=== PATIENT | female | born 1950 | race American Indian/Alaskan Native ===

== ENCOUNTER 2018-07-10 15:20 | Emergency (ER) | payer MEDICARE, OTHER ==
[2018-07-10] MEDS ORDERED: Mupirocin Oint 22 GM Tube TOP ONE (15:21)
[2018-07-10 15:36] VITALS: BP 189/84
[2018-07-10] MEDS ORDERED: Mupirocin Oint 22 GM Tube ONE (16:57)
--- NOTE | 2018-07-11 08:35 | EDM.PDOC ---
Scribed by Kathleen Pittman 07/10/18 [id number] for Antonette Prasad NP ED HPI GENERAL MEDICAL PROBLEM - General Chief Complaint: ENT Problem Stated Complaint: BOIL INSIDE NOSE- PAINFUL Time Seen by Provider: 07/10/18 16:43 Source of Information: Reports: Patient, RN, RN Notes Reviewed History Limitations: Reports: No Limitations - History of Present Illness INITIAL COMMENTS - FREE TEXT/NARRATIVE: Patient presents to ER with complaint of boil on the left nare. This began that she noticed yesterday. She states she has had one in the nose before. Denies MRSA. She has had no fever, chills, nausea, vomiting, diarrhea or visual disturbance. Onset Date: 07/09/18 Duration: Constant Location: Reports: Other (nose) Quality: Reports: Ache Severity: Moderate Improves with: Reports: None Worsens with: Reports: None Associated Symptoms: Reports: No Other Symptoms - Related Data Allergies Allergy/AdvReac Type Severity Reaction Status Date / Time codeine Allergy Vomiting Verified 07/10/18 15:28 meperidine HCl [From Demerol] Allergy Nausea Verified 07/10/18 15:28 morphine Allergy Vomiting Verified 07/10/18 15:28 tramadol Allergy Vomiting Verified 07/10/18 15:28 Home Meds: Home Meds Simvastatin [Zocor] 10 mg PO BEDTIME 05/16/13 [History] Fenofibric Acid (Choline) [Fenofibric Acid] 135 mg PO DAILY 07/10/18 [History] Lisinopril 20 mg PO DAILY 07/10/18 [History] Omeprazole 20 mg PO DAILY 07/10/18 [History] Venlafaxine HCl [Venlafaxine ER] 75 mg PO DAILY 07/10/18 [History] Past Medical History Cardiovascular History: Reports: Heart Murmur, Hypertension Other Cardiovascular History: rheumatic fever and heart murmur Gastrointestinal History: Reports: GERD - Infectious Disease History Infectious Disease History: Reports: Rheumatic Fever Social & Family History - Tobacco Use Smoking Status *Q: Current Every Day Smoker Years of Tobacco use: 40 Packs/Tins Daily: 1 - Living Situation & Occupation Living situation: Reports: , with Spouse Occupation: Retired ED ROS ENT - Review of Systems Review Of Systems: ROS reveals no pertinent complaints other than HPI. ED EXAM, ENT - Physical Exam Exam: See Below Exam Limited By: No Limitations General Appearance: Alert, WD/WN, No Apparent Distress Eye Exam: Bilateral Eye: EOMI, Normal Inspection, PERRL Ears: Normal External Exam, Normal Canal, Hearing Grossly Normal, Normal TMs Nose: Other (left nare is erythematous and there is swelling) Mouth/Throat: Normal Inspection, Normal Gums, Normal Lips, Normal Oropharynx, Normal Teeth Head: Atraumatic, Normocephalic Neck: Normal Inspection Respiratory/Chest: No Respiratory Distress, Lungs Clear, Normal Breath Sounds, No Accessory Muscle Use, Chest Non-Tender Cardiovascular: Normal Peripheral Pulses, Regular Rate, Rhythm, No Edema, No Gallop, No JVD, No Murmur, No Rub GI/Abdominal: Normal Bowel Sounds, Soft, Non-Tender, No Organomegaly, No Distention, No Abnormal Bruit, No Mass (Female) Exam: Deferred Rectal (Female) Exam: Deferred Back: Normal Inspection, Full Range of Motion Extremities: Normal Inspection, Normal Range of Motion, Non-Tender, No Pedal Edema, Normal Capillary Refill Neurological: Alert, Oriented, CN II-XII Intact, Normal Cognition, Normal Gait, Normal Reflexes, No Motor/Sensory Deficits Psychiatric: Normal Affect, Normal Mood Skin: Other (See HEENT exam) Lymphatic: No Adenopathy Course - Vital Signs Last Recorded V/S: Last Vital Signs Temp 98.4 F 07/10/18 15:24 Pulse 75 07/10/18 15:24 Resp 16 07/10/18 15:24 BP 189/84 H 07/10/18 15:24 Pulse Ox 96 07/10/18 15:24 Departure - Departure Time of Disposition: 16:55 Disposition: Home, Self-Care 01 Condition: Fair Clinical Impression: Abscess - Discharge Information *PRESCRIPTION DRUG MONITORING PROGRAM REVIEWED*: No *COPY OF PRESCRIPTION DRUG MONITORING REPORT IN PATIENT WILLIAM: No Instructions: Skin Abscess, [id number] Forms: ED Department Discharge Additional Instructions: May hotpack the area as tolerated Apply Bactroban to the area 3-4 times daily with a clean qtip until healed. If any worsening symptoms, return to the ER or follow up with your primary care facility I have read and agree with the documentation that has been completed regarding this visit. By signing this record, I attest that the documentation was completed in my physical presence and is an accurate record of the encounter.
== END 2018-07-10 17:05 | disposition home or self-care (01) ==
LOC: DL.ED 15:20
DX: J34.0 Abscess, furuncle and carbuncle of nose (principal); I10 Essential (primary) hypertension; K21.9 Gastro-esophageal reflux disease without esophagitis; F17.210 Nicotine dependence, cigarettes, uncomplicated; Z88.5 Allergy status to narcotic agent; Z88.8 Allergy status to other drugs, medicaments and biological substances; Z79.899 Other long term (current) drug therapy
CPT/HCPCS: 99283; A9270

== ENCOUNTER 2018-11-27 15:09 | Emergency (ER) | payer BC, MEDICARE, OTHER ==
--- NOTE | 2018-11-27 15:55 | EDM.PDOC ---
ED HPI GENERAL MEDICAL PROBLEM - General Chief Complaint: Chest Pain Stated Complaint: SHORT OF BREATH, CHEST HURTING Time Seen by Provider: 11/27/18 15:55 Source of Information: Reports: Patient, RN, RN Notes Reviewed History Limitations: Reports: No Limitations - History of Present Illness INITIAL COMMENTS - FREE TEXT/NARRATIVE: Pt to ER with c/o pain in the left chest and back with inspiration. States this pain began this morning. Patient denies SOB. States the left side pain worsens with inspiration. No radiation of pain to the left arm, neck. Patient denies fever or chills, N/V/D, recent illness. Patient states she is a smoker, has not smoked today. Onset: Today, Sudden Duration: Constant, Getting Worse Location: Reports: Chest Left Chest Pain Score (Numeric/FACES): 4 - Related Data Allergies Allergy/AdvReac Type Severity Reaction Status Date / Time codeine Allergy Vomiting Verified 11/27/18 16:03 meperidine HCl [From Demerol] Allergy Nausea Verified 11/27/18 16:03 morphine Allergy Vomiting Verified 11/27/18 16:03 tramadol Allergy Vomiting Verified 11/27/18 16:03 Home Meds: Home Meds Simvastatin [Zocor] 10 mg PO BEDTIME 05/16/13 [History] Fenofibric Acid (Choline) [Fenofibric Acid] 135 mg PO DAILY 07/10/18 [History] Lisinopril 20 mg PO DAILY 07/10/18 [History] Omeprazole 20 mg PO DAILY 07/10/18 [History] Venlafaxine HCl [Venlafaxine ER] 75 mg PO DAILY 07/10/18 [History] Past Medical History Cardiovascular History: Reports: Heart Murmur, Hypertension Other Cardiovascular History: rheumatic fever and heart murmur Gastrointestinal History: Reports: GERD - Infectious Disease History Infectious Disease History: Reports: Rheumatic Fever Social & Family History - Living Situation & Occupation Living situation: Reports: , with Spouse Occupation: Retired ED ROS GENERAL - Review of Systems Review Of Systems: ROS reveals no pertinent complaints other than HPI. ED EXAM, GENERAL - Physical Exam Exam: See Below Exam Limited By: No Limitations General Appearance: Alert, WD/WN, Mild Distress Eye Exam: Bilateral Eye: EOMI, Normal Inspection Ears: Normal External Exam, Hearing Grossly Normal Nose: Normal Inspection Throat/Mouth: Normal Inspection Head: Atraumatic, Normocephalic Neck: Normal Inspection, Supple, Non-Tender, Full Range of Motion Respiratory/Chest: No Respiratory Distress, Lungs Clear, Normal Breath Sounds, No Accessory Muscle Use, Other (tender on the left on inspiration) Cardiovascular: Normal Peripheral Pulses, Regular Rate, Rhythm, No Edema, No Gallop, No JVD, No Murmur, No Rub Peripheral Pulses: 2+: Radial (L), Radial (R) GI/Abdominal: Normal Bowel Sounds, Soft, Non-Tender, No Organomegaly, No Distention, No Abnormal Bruit, No Mass (Female) Exam: Deferred Rectal (Female) Exam: Deferred Back Exam: Normal Inspection, Full Range of Motion. No: CVA Tenderness (L), CVA Tenderness (R), Decreased Range of Motion Extremities: Normal Inspection, Normal Range of Motion, Non-Tender, Normal Capillary Refill, No Pedal Edema Neurological: Alert, Oriented, CN II-XII Intact, Normal Cognition, Normal Gait, Normal Reflexes, No Motor/Sensory Deficits Psychiatric: Normal Affect, Normal Mood Skin Exam: Warm, Dry, Intact, Normal Color, No Rash Lymphatic: No Adenopathy Course - Vital Signs Last Recorded V/S: Last Vital Signs Temp 97.3 F 11/27/18 15:15 Pulse 73 11/27/18 15:15 Resp 16 11/27/18 15:15 BP 126/72 11/27/18 15:15 Pulse Ox 97 11/27/18 15:15 - Orders/Labs/Meds Orders: Active Orders 24 hr Category Date Time Status EKG 12 Lead [EKG Documentation Completion] [RC] URGENT Care 11/27/18 15:33 Active Labs: Laboratory Tests 11/27/18 11/27/18 Range/Units 15:42 15:42 WBC 5.6 (5.0-10.0) 10^3/uL RBC 4.63 (4.2-5.4) 10^6/uL Hgb 13.1 (12.0-16.0) g/dL Hct 41.3 (37.0-47.0) % MCV 89.2 D (80-100) fL MCH 28.3 (27.0-34.0) pg MCHC 31.7 L (33.0-35.0) g/dL Plt Count 301 (150-450) 10^3/uL Neut % (Auto) 51.3 (42.2-75.2) % Lymph % (Auto) 39.2 (20.5-50.1) % Harper % (Auto) 6.8 (2-8) % Eos % (Auto) 2.2 (1.0-3.0) % Baso % (Auto) 0.5 (0.0-1.0) % Sodium 142 (135-145) mmol/L Potassium 3.7 (3.6-5.0) mmol/L Chloride 111 (101-111) mmol/L Carbon Dioxide 22.0 (21.0-31.0) mmol/L Anion Gap 12.7 BUN 18 (7-18) mg/dL Creatinine 0.9 (0.6-1.3) mg/dL Est Cr Clr Drug Dosing 49.49 mL/min Estimated GFR (MDRD) > 60 BUN/Creatinine Ratio 20.00 Glucose 161 H (74-105) mg/dL Calcium 8.9 (8.4-10.2) mg/dl Total Bilirubin 0.3 (0.2-1.0) mg/dL AST 24 (10-42) IU/L ALT 23 (10-60) IU/L Alkaline Phosphatase 47 (42-121) IU/L Troponin I < 0.02 (0.00-0.02) ng/ml Total Protein 7.1 (6.7-8.2) g/dl Albumin 3.9 (3.2-5.5) g/dl Globulin 3.2 Albumin/Globulin Ratio 1.22 - Radiology Interpretation Free Text/Narrative:: Chest xray: FINDINGS: Lungs: Aeration and architecture is normal Pleural space: The pleural surfaces are normal. There are no signs of effusion or pneumothorax. Heart/Mediastinum: The heart and mediastinum appear normal. Left tracheal deviation is unchanged. Bones/joints: Normal IMPRESSION: Normal Thank you for allowing us to participate in the care of your patient. Dictated and Authenticated by: Андрей Herman MD 11/27/2018 4:19 PM Central Time ([place] & [place]) See rad report Departure - Departure Time of Disposition: 17:23 Disposition: Home, Self-Care 01 Condition: Fair Clinical Impression: Pleurisy Instructions: Nonspecific Chest Pain, [id number], Pleurisy, [id number] Referrals: PCP,None [Primary Care Provider] - Forms: ED Department Discharge Additional Instructions: May use heat as tolerated to the area May use Tylenol and/or Ibuprofen as directed for pain Refrain from smoking Follow up with your primary care facility if no improvement - My Orders Last 24 Hours: My Active Orders 11/27/18 15:33 EKG 12 Lead [EKG Documentation Completion] [RC] URGENT - Assessment/Plan Last 24 Hours: My Active Orders 11/27/18 15:33 EKG 12 Lead [EKG Documentation Completion] [RC] URGENT
[2018-11-27 16:03] VITALS: BP 126/72; PULSE 73
[2018-11-27 16:10] LABS: ANION GAP 12.7; CHLORIDE,CL 111 mmol/L (101-111); SODIUM,NA 142 mmol/L (135-145)
== END 2018-11-27 17:35 | disposition home or self-care (01) ==
LOC: DL.ED 15:09
DX: R09.1 Pleurisy (principal); I10 Essential (primary) hypertension; K21.9 Gastro-esophageal reflux disease without esophagitis; Z88.5 Allergy status to narcotic agent; Z88.8 Allergy status to other drugs, medicaments and biological substances; Z79.899 Other long term (current) drug therapy
CPT/HCPCS: 36415; 71045; 80053; 84484; 85025; 93005; 99285-25

== ENCOUNTER 2019-08-27 14:31 | Emergency (ER) | payer BC, MEDICARE, OTHER ==
[2019-08-27] MEDS ORDERED: Sulfamethoxazole/Trimethoprim 800-160 MG Tab PO ONE (14:32)
[2019-08-27 14:46] VITALS: PULSE 83
[2019-08-27 14:55] VITALS: BP 136/78
[2019-08-27 16:03] LABS: ANION GAP 16.5 mEq/L (7-13); CHLORIDE,CL 107 mmol/L (98-107); SODIUM,NA 143 mmol/L (136-145)
--- NOTE | 2019-08-27 16:38 | EDM.PDOC ---
Scribed by Kathleen Pittman 08/27/19 [id number] for Ora Drew NP ED HPI GENERAL MEDICAL PROBLEM - General Chief Complaint: Syncope Stated Complaint: AMB Time Seen by Provider: 08/27/19 14:33 Source of Information: Reports: Patient, EMS, EMS Notes Reviewed, RN, RN Notes Reviewed - History of Present Illness INITIAL COMMENTS - FREE TEXT/NARRATIVE: A 68-year-old female who presents to the hospital by [facility] for a syncopal episode. Patient reports she had vegetable soup and a wine cooler. She reports she felt sick almost immediately when she was done drinking the wine cooler and went to the bathroom to defecate. She reports filling tired and weak and sitting on the toilet. She had diarrhea and called her son to help to get her to the living room as she was very weak. Her helped her to the living room and reports she passed out on the couch. Her denies any seizure activity and stated patient went into a deep sleep and would not respond to calls. Patient reports she cannot remember any of this after being brought out of the bathroom to the couch. She did not fall nor hit her head. She denies prior history of this. No illicit drug use. She smokes cigarettes. She has never had a syncopal episode before. She did admit to having nausea, but no vomiting. She reports also feeling pressure in her suprapubic area. She denies any fevers or chills. No blood in stools or constipation at this time. Patient reports she feels better and the nausea has subsided after being in the bathroom in the ER for 20 minutes. She reports diarrhea. Onset: Today Severity: Moderate Headache Pain Score (Numeric/FACES): 6 - Related Data Allergies Allergy/AdvReac Type Severity Reaction Status Date / Time codeine Allergy Vomiting Verified 11/27/18 16:03 meperidine HCl [From Demerol] Allergy Nausea Verified 11/27/18 16:03 morphine Allergy Vomiting Verified 11/27/18 16:03 tramadol Allergy Vomiting Verified 11/27/18 16:03 Home Meds: Home Meds Simvastatin [Zocor] 10 mg PO BEDTIME 05/16/13 [History] Fenofibric Acid (Choline) [Fenofibric Acid] 135 mg PO DAILY 07/10/18 [History] Lisinopril 20 mg PO DAILY 07/10/18 [History] Omeprazole 20 mg PO DAILY 07/10/18 [History] Venlafaxine HCl [Venlafaxine ER] 75 mg PO DAILY 07/10/18 [History] Meclizine [Antivert] 25 mg PO DAILY 08/27/19 [History] Past Medical History Cardiovascular History: Reports: Heart Murmur, Hypertension Other Cardiovascular History: rheumatic fever and heart murmur Gastrointestinal History: Reports: GERD - Infectious Disease History Infectious Disease History: Reports: Rheumatic Fever Social & Family History - Living Situation & Occupation Living situation: Reports: , with Spouse Occupation: Retired ED ROS GENERAL - Review of Systems Review Of Systems: Comprehensive ROS is negative, except as noted in HPI. ED EXAM, GENERAL - Physical Exam Exam: See Below Exam Limited By: No Limitations General Appearance: Alert, Mild Distress Eye Exam: Bilateral Eye: PERRL Nose: Normal Inspection, Normal Mucosa, No Blood Throat/Mouth: Normal Inspection, Normal Lips, Normal Teeth, Normal Gums, Normal Oropharynx, Normal Voice, No Airway Compromise Head: Atraumatic, Normocephalic Neck: Normal Inspection, Supple, Non-Tender, Full Range of Motion Respiratory/Chest: No Respiratory Distress, Lungs Clear, Normal Breath Sounds, No Accessory Muscle Use, Chest Non-Tender Cardiovascular: Normal Peripheral Pulses, Regular Rate, Rhythm, No Edema, No Gallop, No JVD, No Murmur, No Rub GI/Abdominal: Normal Bowel Sounds, Soft, Non-Tender, No Organomegaly, No Distention, No Abnormal Bruit, No Mass (Female) Exam: Deferred Rectal (Female) Exam: Deferred Back Exam: Normal Inspection, Full Range of Motion, NT Extremities: Normal Inspection, Normal Range of Motion, Non-Tender, Normal Capillary Refill, No Pedal Edema Neurological: Alert, Oriented, CN II-XII Intact, Normal Cognition, Normal Gait, Normal Reflexes, No Motor/Sensory Deficits Psychiatric: Normal Affect, Normal Mood Skin Exam: Warm, Dry, Intact, Normal Color, No Rash Lymphatic: No Adenopathy Course - Vital Signs Last Recorded V/S: Last Vital Signs Temp 98.4 F 08/27/19 14:36 Pulse 83 08/27/19 14:36 Resp 16 08/27/19 14:36 BP 136/78 08/27/19 14:54 Pulse Ox 100 06/13/20 14:36 - Orders/Labs/Meds Orders: Active Orders 24 hr Category Date Time Status EKG Documentation Completion [RC] AM Care 08/27/19 14:34 Active CULTURE URINE [RM] Stat Lab 08/27/19 15:50 Ordered Labs: Laboratory Tests 08/27/19 08/27/19 08/27/19 Range/Units 14:34 15:20 15:20 WBC 7.1 (5.0-10.0) 10^3/uL RBC 4.73 (4.2-5.4) 10^6/uL Hgb 13.4 (12.0-16.0) g/dL Hct 41.5 (37.0-47.0) % MCV 87.7 (80-100) fL MCH 28.3 (27.0-34.0) pg MCHC 32.3 L (33.0-35.0) g/dL Plt Count 267 (150-450) 10^3/uL Neut % (Auto) 64.8 (42.2-75.2) % Lymph % (Auto) 25.4 (20.5-50.1) % [place] % (Auto) 5.8 (2-8) % Eos % (Auto) 3.4 H (1.0-3.0) % Baso % (Auto) 0.6 (0.0-1.0) % Sodium 143 (136-145) mmol/L Potassium 3.5 (3.5-5.1) mmol/L Chloride 107 (98-107) mmol/L Carbon Dioxide 23 (21-32) mmol/L Anion Gap 16.5 H (7-13) mEq/L BUN 14 (7-18) mg/dL Creatinine 0.89 (0.55-1.02) mg/dL Est Cr Clr Drug Dosing 43.45 mL/min Estimated GFR (MDRD) > 60 BUN/Creatinine Ratio 15.7 (No establ ref range) Glucose 144 H (74-99) mg/dL Calcium 9.2 (8.5-10.1) mg/dL Phosphorus (2.6-4.7) mg/dL Magnesium (1.8-2.4) mg/dL Total Bilirubin 0.3 (0.2-1.0) mg/dL AST 32 (15-37) U/L ALT 42 (14-59) U/L Alkaline Phosphatase 109 (46-116) U/L Total Protein 7.2 (6.4-8.2) g/dL Albumin 3.7 (3.4-5.0) g/dL Globulin 3.5 Albumin/Globulin Ratio 1.1 Urine Color Dark yellow (YELLOW) Urine Appearance Clear (CLEAR) Urine pH 6.0 (5.0-9.0) Ur Specific [place] 1.025 (1.005-1.030) Urine Protein 100 H (NEGATIVE) Urine Glucose (UA) Negative (NEGATIVE) Urine Ketones Trace H (NEGATIVE) Urine Occult Blood Negative (NEGATIVE) Urine Nitrite Positive H (NEGATIVE) Urine Bilirubin Small H (NEGATIVE) Urine Urobilinogen >=8.0 H (0.2-1.0) mg/dL Ur Leukocyte Esterase Negative (NEGATIVE) Urine RBC 0-5 /HPF Urine WBC 0-5 (0-5/HPF) /HPF Ur Epithelial Cells Few (NOT SEEN) /HPF Urine Bacteria Moderate H (0-FEW/HPF) /HPF Granular Casts (Auto) Rare //20 Range/Units 15:20 WBC (5.0-10.0) 10^3/uL RBC (4.2-5.4) 10^6/uL Hgb (12.0-16.0) g/dL Hct (37.0-47.0) % MCV (80-100) fL MCH (27.0-34.0) pg MCHC (33.0-35.0) g/dL Plt Count (150-450) 10^3/uL Neut % (Auto) (42.2-75.2) % Lymph % (Auto) (20.5-50.1) % [place]undy % (Auto) (2-8) % Eos % (Auto) (1.0-3.0) % Baso % (Auto) (0.0-1.0) % Sodium (136-145) mmol/L Potassium (3.5-5.1) mmol/L Chloride (98-107) mmol/L Carbon Dioxide (21-32) mmol/L Anion Gap (7-13) mEq/L BUN (7-18) mg/dL Creatinine (0.55-1.02) mg/dL Est Cr Clr Drug Dosing mL/min Estimated GFR (MDRD) BUN/Creatinine Ratio (No establ ref range) Glucose (74-99) mg/dL Calcium (8.5-10.1) mg/dL Phosphorus 4.4 (2.6-4.7) mg/dL Magnesium 2.1 (1.8-2.4) mg/dL Total Bilirubin (0.2-1.0) mg/dL AST (15-37) U/L ALT (14-59) U/L Alkaline Phosphatase (46-116) U/L Total Protein (6.4-8.2) g/dL Albumin (3.4-5.0) g/dL Globulin Albumin/Globulin Ratio Urine Color (YELLOW) Urine Appearance (CLEAR) Urine pH (5.0-9.0) Ur Specific [place] (1.005-1.030) Urine Protein (NEGATIVE) Urine Glucose (UA) (NEGATIVE) Urine Ketones (NEGATIVE) Urine Occult Blood (NEGATIVE) Urine Nitrite (NEGATIVE) Urine Bilirubin (NEGATIVE) Urine Urobilinogen (0.2-1.0) mg/dL Ur Leukocyte Esterase (NEGATIVE) Urine RBC /HPF Urine WBC (0-5/HPF) /HPF Ur Epithelial Cells (NOT SEEN) /HPF Urine Bacteria (0-FEW/HPF) /HPF Granular Casts (Auto) - Re-Assessments/Exams Free Text/Narrative Re-Assessment/Exam: Patient's labs were reviewed with her. She was noted to be positive for UTI. RX for Bactrim given to patient. Recommend pushing fluids and trying a bland diet. Follow up with PCP at the clinic. Patient verbalized understanding. 08/27/19 16:36 Departure - Departure Time of Disposition: 16:33 Disposition: Home, Self-Care 01 Condition: Good Clinical Impression: Gastroenteritis UTI (urinary tract infection) Qualifiers: Urinary tract infection type: acute cystitis Hematuria presence: without hematuria Qualified Code(s): N30.00 - Acute cystitis without hematuria Syncopal episodes Qualifiers: Syncope type: unspecified Qualified Code(s): R55 - Syncope and collapse - Discharge Information *PRESCRIPTION DRUG MONITORING PROGRAM REVIEWED*: Not Applicable *COPY OF PRESCRIPTION DRUG MONITORING REPORT IN PATIENT WILLIAM: Not Applicable Instructions: Viral Gastroenteritis, Adult, [id number], Urinary Tract Infection, Adult, [id number], Syncope, [id number] Forms: ED Department Discharge Additional Instructions: RX for Bactrim given to patient. Push fluids. Follow up with PCP at the clinic. Sepsis Event Note (ED) - Focused Exam Vital Signs: Vital Signs Temp Pulse Resp BP Pulse Ox 08/27/19 14:54 136/78 08/27/19 14:36 98.4 F 83 16 160/71 H 100 - My Orders Last 24 Hours: My Active Orders 08/27/19 14:34 EKG Documentation Completion [RC] AM 08/27/19 15:50 CULTURE URINE [RM] Stat - Assessment/Plan Last 24 Hours: My Active Orders 08/27/19 14:34 EKG Documentation Completion [RC] AM 08/27/19 15:50 CULTURE URINE [RM] Stat I have read and agree with the documentation that has been completed regarding this visit. By signing this record, I attest that the documentation was completed in my physical presence and is an accurate record of the encounter.
[2019-08-27] MEDS ORDERED: Sulfamethoxazole/Trimethoprim 800-160 MG Tab ONE (16:40)
== END 2019-08-27 17:20 | disposition home or self-care (01) ==
LOC: DL.ED 14:31
DX: R55 Syncope and collapse (principal); N30.00 Acute cystitis without hematuria; K52.9 Noninfective gastroenteritis and colitis, unspecified; Z88.5 Allergy status to narcotic agent; I10 Essential (primary) hypertension; K21.9 Gastro-esophageal reflux disease without esophagitis; Z79.899 Other long term (current) drug therapy
CPT/HCPCS: 36415; 80053; 81001; 83735; 84100; 85025; 87086; 87088; 87186; 93005; 99284; A9270

== ENCOUNTER 2019-08-28 10:54 | Emergency (ER) | payer BC, MEDICARE, OTHER ==
--- NOTE | 2019-08-28 10:53 | EDM.PDOC ---
ED HPI GENERAL MEDICAL PROBLEM - General Stated Complaint: AMBULANCE Time Seen by Provider: 08/28/19 10:53 Source of Information: Reports: Patient, EMS, EMS Notes Reviewed, RN, RN Notes Reviewed History Limitations: Reports: No Limitations - History of Present Illness INITIAL COMMENTS - FREE TEXT/NARRATIVE: Patient to ER per [place] ambulance service with complaint of diarrhea with blood. Patient was seen in the ER yesterday having diarrhea, dizziness, lightheadedness. States diarrhea began yesterday about noon, had 2 stools yesterday. Patient states she was up to the restroom about 5 times during the night, really did not pass much stool but did pass bright red blood. Patient admits to nausea, denies vomiting. Patient states began having a fever this morning. Last time she ate was last evening, cereal. Onset: Gradual headache Pain Score (Numeric/FACES): 5 - Related Data Allergies Allergy/AdvReac Type Severity Reaction Status Date / Time codeine Allergy Vomiting Verified 08/28/19 11:02 meperidine HCl [From Demerol] Allergy Nausea Verified 08/28/19 11:02 morphine Allergy Vomiting Verified 08/28/19 11:02 tramadol Allergy Vomiting Verified 08/28/19 11:02 Home Meds: Home Meds Simvastatin [Zocor] 10 mg PO BEDTIME 05/16/13 [History] Fenofibric Acid (Choline) [Fenofibric Acid] 135 mg PO DAILY 07/10/18 [History] Lisinopril 20 mg PO DAILY 07/10/18 [History] Omeprazole 20 mg PO DAILY 07/10/18 [History] Venlafaxine HCl [Venlafaxine ER] 75 mg PO DAILY 07/10/18 [History] Meclizine [Antivert] 25 mg PO DAILY 08/27/19 [History] Past Medical History Cardiovascular History: Reports: Heart Murmur, Hypertension Other Cardiovascular History: rheumatic fever and heart murmur Gastrointestinal History: Reports: GERD Genitourinary History: Reports: UTI, 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 ED EXAM, GI/ABD - Physical Exam Exam: See Below Exam Limited By: No Limitations General Appearance: Alert, WD/WN, No Apparent Distress Eyes: Bilateral: Normal Appearance, EOMI Ears: Normal External Exam, Hearing Grossly Normal Nose: Normal Inspection Throat/Mouth: Normal Inspection, Normal Voice, No Airway Compromise Head: Atraumatic, Normocephalic Neck: Normal Inspection, Supple, Non-Tender, Full Range of Motion Respiratory/Chest: No Respiratory Distress, Lungs Clear, Normal Breath Sounds, No Accessory Muscle Use, Chest Non-Tender Cardiovascular: Normal Peripheral Pulses, Regular Rate, Rhythm, No Edema, No Gallop, No JVD, No Murmur, No Rub GI/Abdominal Exam: Normal Bowel Sounds, Soft, No Organomegaly, No Distention, No Abnormal Bruit, No Mass, Pelvis Stable, Tender (LLQ) (Female) Exam: Deferred Rectal (Female) Exam: Deferred Back Exam: Normal Inspection, Full Range of Motion, NT Extremities: Normal Inspection, Normal Range of Motion, Non-Tender, Normal Capillary Refill, No Pedal Edema Neurological: Alert, Oriented, CN II-XII Intact, Normal Cognition, Normal Gait, Normal Reflexes, No Motor/Sensory Deficits Psychiatric: Normal Affect, Normal Mood Skin Exam: Warm, Dry, Intact, Normal Color, No Rash Lymphatic: No Adenopathy Course - Vital Signs Last Recorded V/S: Last Vital Signs Temp 97.9 F 08/28/19 12:34 Pulse 81 08/28/19 12:34 Resp 16 08/28/19 12:34 BP 145/70 H 08/28/19 12:35 Pulse Ox 96 08/28/19 12:34 - Orders/Labs/Meds Orders: Active Orders 24 hr Category Date Time Status Peripheral IV Care [RC] . DIRECTED Care 08/28/19 11:29 Active CLOSTRIDIUM DIFFICILE TOX RFLX [MREF] Stat Lab 08/28/19 11:35 Received CULTURE BLOOD [BC] Stat Lab 08/28/19 11:39 Results CULTURE BLOOD [BC] Stat Lab 08/28/19 11:45 Received STOOL CULTURE/SHIGA TOXIN [MREF] Stat Lab 08/28/19 11:35 Received Sodium Chloride 0.9% [Normal Saline] 1,000 ml Med 08/28/19 12:45 Active IV ASDIRECTED Sodium Chloride 0.9% [Saline Flush] Med 08/28/19 11:29 Active 10 ml FLUSH ASDIRECTED PRN Blood Culture x2 Reflex Set [OM.PC] Stat Ot 08/28/19 11:28 Ordered Isolation [COMM] Stat Ot 08/28/19 12:21 Active Peripheral IV Insertion Adult [OM.PC] Stat [facility] 08/28/19 11:28 Ordered Medication Orders Sodium Chloride (Normal Saline) 1,000 mls @ 125 mls/hr IV ASDIRECTED ARMANDO Last Admin: 08/28/19 12:45 Dose: 125 mls/hr Sodium Chloride (Saline Flush) 10 ml FLUSH ASDIRECTED PRN PRN Reason: Keep Vein Open Labs: Laboratory Tests 08/28/19 08/28/19 08/28/19 Range/Units 11:45 11:45 11:45 WBC 14.5 H (5.0-10.0) 10^3/uL RBC 5.26 (4.2-5.4) 10^6/uL Hgb 14.8 (12.0-16.0) g/dL Hct 45.6 (37.0-47.0) % MCV 86.7 (80-100) fL MCH 28.1 (27.0-34.0) pg MCHC 32.5 L (33.0-35.0) g/dL Plt Count 310 (150-450) 10^3/uL Neut % (Auto) 83.2 H (42.2-75.2) % Lymph % (Auto) 11.5 L (20.5-50.1) % [place] % (Auto) 4.6 (2-8) % Eos % (Auto) 0.5 L (1.0-3.0) % Baso % (Auto) 0.2 (0.0-1.0) % ESR (0-20) mm/hr Sodium 142 (136-145) mmol/L Potassium 3.5 (3.5-5.1) mmol/L Chloride 104 (98-107) mmol/L Carbon Dioxide 23 (21-32) mmol/L Anion Gap 18.5 H (7-13) mEq/L BUN 10 (7-18) mg/dL Creatinine 0.85 (0.55-1.02) mg/dL Est Cr Clr Drug Dosing 52.40 mL/min Estimated GFR (MDRD) > 60 BUN/Creatinine Ratio 11.8 (No establ ref range) Glucose 111 H (74-99) mg/dL Lactic Acid 1.4 (0.4-2.0) mmol/L Calcium 8.9 (8.5-10.1) mg/dL Magnesium 1.9 (1.8-2.4) mg/dL Total Bilirubin 0.3 (0.2-1.0) mg/dL AST 26 (15-37) U/L ALT 41 (14-59) U/L Alkaline Phosphatase 128 H (46-116) U/L C-Reactive Protein 5.4 H (0.0-0.9) mg/dL Total Protein 8.4 H (6.4-8.2) g/dL Albumin 4.1 (3.4-5.0) g/dL Globulin 4.3 Albumin/Globulin Ratio 1.0 SARS-CoV-2 RNA (RT-PCR) (NEGATIVE) 08/28/19 08/28/19 Range/Units 11:45 13:05 WBC (5.0-10.0) 10^3/uL RBC (4.2-5.4) 10^6/uL Hgb (12.0-16.0) g/dL Hct (37.0-47.0) % MCV (80-100) fL MCH (27.0-34.0) pg MCHC (33.0-35.0) g/dL Plt Count (150-450) 10^3/uL Neut % (Auto) (42.2-75.2) % Lymph % (Auto) (20.5-50.1) % [place] % (Auto) (2-8) % Eos % (Auto) (1.0-3.0) % Baso % (Auto) (0.0-1.0) % ESR 7 (0-20) mm/hr Sodium (136-145) mmol/L Potassium (3.5-5.1) mmol/L Chloride (98-107) mmol/L Carbon Dioxide (21-32) mmol/L Anion Gap (7-13) mEq/L BUN (7-18) mg/dL Creatinine (0.55-1.02) mg/dL Est Cr Clr Drug Dosing mL/min Estimated GFR (MDRD) BUN/Creatinine Ratio (No establ ref range) Glucose (74-99) mg/dL Lactic Acid (0.4-2.0) mmol/L Calcium (8.5-10.1) mg/dL Magnesium (1.8-2.4) mg/dL Total Bilirubin (0.2-1.0) mg/dL AST (15-37) U/L ALT (14-59) U/L Alkaline Phosphatase (46-116) U/L C-Reactive Protein (0.0-0.9) mg/dL Total Protein (6.4-8.2) g/dL Albumin (3.4-5.0) g/dL Globulin Albumin/Globulin Ratio SARS-CoV-2 RNA (RT-PCR) Negative (NEGATIVE) Stool for Occult blood: POSITIVE Meds: Medications Generic Name Dose Route Start Last Admin Trade Name Freq PRN Reason Stop Dose Admin Sodium Chloride 1,000 mls @ 125 mls/hr 08/28/19 12:45 08/28/19 12:45 Normal Saline IV 125 mls/hr ASDIRECTED ARMANDO Administration Sodium Chloride 10 ml 08/28/19 11:29 Saline Flush FLUSH ASDIRECTED PRN Keep Vein Open Discontinued Medications Generic Name Dose Route Start Last Admin Trade Name Freq PRN Reason Stop Dose Admin Sodium Chloride 1,000 mls @ 999 mls/hr 08/28/19 11:29 08/28/19 11:49 Normal Saline IV 08/28/19 12:29 999 mls/hr .BOLUS ONE Administration - Re-Assessments/Exams Free Text/Narrative Re-Assessment/Exam: 08/28/19 12:59 Discussed patient case with Dr. Coon who agreed to accept the patient for transfer to [facility]. Departure - Departure Time of Disposition: 13:54 Disposition: DC/Tfer to Acute Hospital 02 Condition: Fair Clinical Impression: GI bleed Qualifiers: GI bleed type/associated pathology: unspecified gastrointestinal hemorrhage type Qualified Code(s): K92.2 - Gastrointestinal hemorrhage, unspecified - Discharge Information *PRESCRIPTION DRUG MONITORING PROGRAM REVIEWED*: No *COPY OF PRESCRIPTION DRUG MONITORING REPORT IN PATIENT WILLIAM: No Referrals: Donato Mccabe [Primary Care Provider] - Forms: Interfacility Transfer EMTALA, ED Department Discharge Sepsis Event Note (ED) - Focused Exam Vital Signs: Vital Signs Temp Pulse Resp BP BP Pulse Ox 08/28/19 12:35 145/70 H 08/28/19 12:34 97.9 F 81 16 158/71 H 96 08/28/19 10:57 99.0 F 93 16 104/88 94 L - My Orders Last 24 Hours: My Active Orders 08/28/19 11:28 Blood Culture x2 Reflex Set [OM.PC] Stat Peripheral IV Insertion Adult [OM.PC] Stat 08/28/19 11:29 Peripheral IV Care [RC] . DIRECTED Sodium Chloride 0.9% [Saline Flush] 10 ml FLUSH ASDIRECTED PRN 08/28/19 11:35 CLOSTRIDIUM DIFFICILE TOX RFLX [MREF] Stat STOOL CULTURE/SHIGA TOXIN [MREF] Stat 08/28/19 11:39 CULTURE BLOOD [BC] Stat 08/28/19 11:45 CULTURE BLOOD [BC] Stat 08/28/19 12:21 Isolation [COMM] Stat 08/28/19 12:45 Sodium Chloride 0.9% [Normal Saline] 1,000 ml IV ASDIRECTED - Assessment/Plan Last 24 Hours: My Active Orders 08/28/19 11:28 Blood Culture x2 Reflex Set [OM.PC] Stat Peripheral IV Insertion Adult [OM.PC] Stat 08/28/19 11:29 Peripheral IV Care [RC] . DIRECTED Sodium Chloride 0.9% [Saline Flush] 10 ml FLUSH ASDIRECTED PRN 08/28/19 11:35 CLOSTRIDIUM DIFFICILE TOX RFLX [MREF] Stat STOOL CULTURE/SHIGA TOXIN [MREF] Stat 08/28/19 11:39 CULTURE BLOOD [BC] Stat 08/28/19 11:45 CULTURE BLOOD [BC] Stat 08/28/19 12:21 Isolation [COMM] Stat 08/28/19 12:45 Sodium Chloride 0.9% [Normal Saline] 1,000 ml IV ASDIRECTED
[2019-08-28] MEDS ORDERED: Sodium Chloride 0.9% 1,000 ML IV ONE (11:29)
[2019-08-28] MEDS ORDERED: Sodium Chloride 0.9% 10 ML Syringe FLUSH PRN (11:29)
[2019-08-28 12:18] LABS: ANION GAP 18.5 mEq/L (7-13); CHLORIDE,CL 104 mmol/L (98-107); SODIUM,NA 142 mmol/L (136-145)
[2019-08-28 12:35] VITALS: PULSE 81
[2019-08-28 12:36] VITALS: BP 145/70
[2019-08-28] MEDS ORDERED: Sodium Chloride 0.9% 1,000 ML IV SCH (12:45)
[2019-08-28] MEDS ORDERED: Lactated Ringers 1,000 ML IV SCH (12:45)
== END 2019-08-28 14:12 ==
LOC: DL.ED 10:54
DX: K92.2 Gastrointestinal hemorrhage, unspecified (principal); I10 Essential (primary) hypertension; K21.9 Gastro-esophageal reflux disease without esophagitis; Z88.5 Allergy status to narcotic agent; Z88.8 Allergy status to other drugs, medicaments and biological substances; Z79.899 Other long term (current) drug therapy; Z20.828 Contact with and (suspected) exposure to other viral communicable diseases
CPT/HCPCS: 36415; 80053; 82272; 83605; 83735; 85025; 85651; 86140; 87040; 87045; 87046; 87493; 87635; 87899; 96360; 96361; 99285; J7030; U0002

== ENCOUNTER 2020-11-09 20:05 | Emergency (ER) | payer BC, MEDICARE, OTHER ==
[2020-11-09 20:18] VITALS: BP 137/89; PULSE 88
--- NOTE | 2020-11-09 20:41 | EDM.PDOC ---
ED HPI GENERAL MEDICAL PROBLEM - General Chief Complaint: Cardiovascular Problem Stated Complaint: BLOOD PRESSURE & OXYGEN CHECKED Time Seen by Provider: 11/09/20 20:32 Source of Information: Reports: Patient, RN Notes Reviewed History Limitations: Reports: No Limitations - History of Present Illness INITIAL COMMENTS - FREE TEXT/NARRATIVE: Pt is here for lightheadedness and shortness of breath that started about 1 hour ago while she was getting ready to go to eat. She noted that they did go out to eat, but her BP was 200s/100s so they came here after dinner. She is starting to feel a little better and her BP on arrival in 130s/80s. She still has a little lightheadedness, but overall feels better since eating and no longer feels short of breath. She has been doctoring in [place] and has another appointment there coming up for carotid stenosis. She was started on a new heart medication, but doesn't remember what it was called. Onset: Today Duration: Improving Location: Reports: Head, Chest - Related Data Allergies Allergy/AdvReac Type Severity Reaction Status Date / Time codeine Allergy Vomiting Verified 11/09/20 20:17 meperidine HCl [From Demerol] Allergy Nausea Verified 11/09/20 20:17 morphine Allergy Vomiting Verified 11/09/20 20:17 tramadol Allergy Vomiting Verified 11/09/20 20:17 Home Meds: Home Meds Simvastatin [Zocor] 10 mg PO BEDTIME 05/16/13 [History] Fenofibric Acid (Choline) [Fenofibric Acid] 135 mg PO DAILY 07/10/18 [History] Lisinopril 20 mg PO DAILY 07/10/18 [History] Omeprazole 20 mg PO DAILY 07/10/18 [History] Venlafaxine HCl [Venlafaxine ER] 75 mg PO DAILY 07/10/18 [History] Meclizine [Antivert] 25 mg PO DAILY 08/27/19 [History] Past Medical History Cardiovascular History: Reports: Heart Murmur, Hypertension Other Cardiovascular History: rheumatic fever and heart murmur Gastrointestinal History: Reports: GERD Genitourinary History: Reports: UTI, 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: Neurological History: Reports: TIA, Vertigo - Infectious Disease History Infectious Disease History: Reports: Rheumatic Fever - Past Surgical History GI Surgical History: Reports: Cholecystectomy Female Surgical History: Reports: Section Social & Family History - Tobacco Use Tobacco Use Status *Q: Current Every Day Tobacco User Years of Tobacco use: 50 Packs/Tins Daily: 0.5 - Caffeine Use Caffeine Use: Reports: Coffee, Soda - Recreational Drug Use Recreational Drug Use: No - Living Situation & Occupation Living situation: Reports: , with Spouse Occupation: Retired ED ROS GENERAL - Review of Systems Review Of Systems: Comprehensive ROS is negative, except as noted in HPI. ED EXAM, GENERAL - Physical Exam Exam: See Below Exam Limited By: No Limitations General Appearance: Alert, WD/WN, No Apparent Distress Eye Exam: Bilateral Eye: Normal Inspection Ears: Normal External Exam Head: Atraumatic, Normocephalic Neck: Supple, Non-Tender Respiratory/Chest: No Respiratory Distress, Lungs Clear, Normal Breath Sounds, No Accessory Muscle Use, Chest Non-Tender. No: Rales, Rhonchi, Wheezing Cardiovascular: Normal Peripheral Pulses, Regular Rate, Rhythm, No Murmur GI/Abdominal: Soft, Non-Tender (Female) Exam: Deferred Rectal (Female) Exam: Deferred Back Exam: Normal Inspection, Full Range of Motion, NT Extremities: Normal Inspection, Normal Range of Motion, Non-Tender Neurological: Alert, Oriented, Normal Cognition, No Motor/Sensory Deficits Psychiatric: Normal Affect, Normal Mood Skin Exam: Warm, Dry, Intact, Normal Color, No Rash Course - Vital Signs Last Recorded V/S: Last Vital Signs Temp 97.8 F 11/09/20 20:17 Pulse 88 11/09/20 20:17 Resp 16 11/09/20 20:17 BP 137/89 11/09/20 20:17 Pulse Ox 97 11/09/20 20:17 - Orders/Labs/Meds Labs: Laboratory Tests 11/09/20 11/09/20 Range/Units 20:43 20:43 WBC 7.5 (5.0-10.0) 10^3/uL RBC 5.05 (4.2-5.4) 10^6/uL Hgb 14.0 (12.0-16.0) g/dL Hct 43.6 (37.0-47.0) % MCV 86.3 (80-100) fL MCH 27.7 (27.0-34.0) pg MCHC 32.1 L (33.0-35.0) g/dL Plt Count 278 (150-450) 10^3/uL Neut % (Auto) 61.2 (42.2-75.2) % Lymph % (Auto) 29.8 (20.5-50.1) % [place] % (Auto) 6.5 (2-8) % Eos % (Auto) 2.1 (1.0-3.0) % Baso % (Auto) 0.4 (0.0-1.0) % Sodium 144 (136-145) mmol/L Potassium 3.6 (3.5-5.1) mmol/L Chloride 106 (98-107) mmol/L Carbon Dioxide 27 (21-32) mmol/L Anion Gap 14.6 H (7-13) mEq/L BUN 10 (7-18) mg/dL Creatinine 0.68 (0.55-1.02) mg/dL Est Cr Clr Drug Dosing 67.42 mL/min Estimated GFR (MDRD) > 60 BUN/Creatinine Ratio 14.7 (No establ ref range) Glucose 120 H (70-99) mg/dL Calcium 8.2 L (8.5-10.1) mg/dL Total Bilirubin 0.2 (0.2-1.0) mg/dL AST 16 (15-37) U/L ALT 28 (14-59) U/L Alkaline Phosphatase 121 H (46-116) U/L Total Protein 7.0 (6.4-8.2) g/dL Albumin 3.5 (3.4-5.0) g/dL Globulin 3.5 Albumin/Globulin Ratio 1.0 - Re-Assessments/Exams Free Text/Narrative Re-Assessment/Exam: Reviewed labs with pt. Pt feeling better and is ready to go home. 11/09/20 22:12 Departure - Departure Time of Disposition: 22:18 Disposition: Home, Self-Care 01 Condition: Good Clinical Impression: High blood pressure Qualifiers: Hypertension type: primary hypertension Qualified Code(s): I10 - Essential (primary) hypertension Instructions: Hypertension, Adult, [id number] Forms: ED Department Discharge Additional Instructions: Continue your home medications If symptoms return, call/return to the ER Keep upcoming appointments with your providers Sepsis Event Note (ED) - Evaluation Sepsis Screening Result: No Definite Risk - Focused Exam Vital Signs: Vital Signs Temp Pulse Resp BP Pulse Ox 11/09/20 20:17 97.8 F 88 16 137/89 97
[2020-11-09 21:13] LABS: ANION GAP 14.6 mEq/L (7-13); CHLORIDE,CL 106 mmol/L (98-107); SODIUM,NA 144 mmol/L (136-145)
== END 2020-11-09 22:24 | disposition home or self-care (01) ==
LOC: DL.ED 20:05
DX: I10 Essential (primary) hypertension (principal); K21.9 Gastro-esophageal reflux disease without esophagitis; Z88.5 Allergy status to narcotic agent; Z79.899 Other long term (current) drug therapy; Z86.73 Personal history of transient ischemic attack (TIA), and cerebral infarction without residual deficits; Z72.0 Tobacco use
CPT/HCPCS: 36415; 80053; 85025; 99284

== ENCOUNTER 2021-03-01 12:48 | Emergency (ER) | payer BC, MEDICARE, OTHER ==
[2021-03-01 13:58] VITALS: BP 122/94; PULSE 95
--- NOTE | 2021-03-01 14:26 | EDM.PDOC ---
ED HPI GENERAL MEDICAL PROBLEM - General Chief Complaint: Upper Extremity Injury/Pain Stated Complaint: INFECTIION UPPER ARM Time Seen by Provider: 03/01/21 14:18 Source of Information: Reports: Patient History Limitations: Reports: No Limitations - History of Present Illness INITIAL COMMENTS - FREE TEXT/NARRATIVE: 70 y/o F c/o skin infection in R upper arm since Thu. Pt states she woke up with a dime size circular lesion on luz outside of her R upper arm and it has since increased in size. Pt reports purulent discharge from wound. She has been keeping the wound clean and covered and has been using triple antibiotic ointment with no improvement. Denies trauma, other infections, fever, chills, drugs, etoh, murguia, cp, db, abd pn. Right Upper Arm Pain Score (Numeric/FACES): 6 - Related Data Allergies Allergy/AdvReac Type Severity Reaction Status Date / Time codeine Allergy Vomiting Verified 03/01/21 13:58 meperidine HCl [From Demerol] Allergy Nausea Verified 03/01/21 13:58 morphine Allergy Vomiting Verified 03/01/21 13:58 tramadol Allergy Vomiting Verified 03/01/21 13:58 Home Meds: Home Meds Simvastatin [Zocor] 10 mg PO BEDTIME 05/16/13 [History] Fenofibric Acid (Choline) [Fenofibric Acid] 135 mg PO DAILY 07/10/18 [History] Lisinopril 20 mg PO DAILY 07/10/18 [History] Omeprazole 20 mg PO DAILY 07/10/18 [History] Venlafaxine HCl [Venlafaxine ER] 75 mg PO DAILY 07/10/18 [History] Meclizine [Antivert] 25 mg PO DAILY PRN 08/27/19 [History] Past Medical History Cardiovascular History: Reports: Heart Murmur, Hypertension Other Cardiovascular History: rheumatic fever and heart murmur Gastrointestinal History: Reports: GERD Genitourinary History: Reports: UTI, 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: Neurological History: Reports: TIA, Vertigo - Infectious Disease History Infectious Disease History: Reports: Measles, Novel Coronavirus, Rheumatic Fever - Past Surgical History GI Surgical History: Reports: Cholecystectomy Female Surgical History: Reports: Section Social & Family History - Tobacco Use Tobacco Use Status *Q: Current Every Day Tobacco User Years of Tobacco use: 52 Packs/Tins Daily: 0.2 - Caffeine Use Caffeine Use: Reports: Coffee - Recreational Drug Use Recreational Drug Use: No - Living Situation & Occupation Living situation: Reports: , with Spouse Occupation: Retired Review of Systems - Review of Systems Review Of Systems: Comprehensive ROS is negative, except as noted in HPI. ED EXAM, GENERAL - Physical Exam Exam: See Below Exam Limited By: No Limitations General Appearance: Alert, WD/WN, No Apparent Distress Respiratory/Chest: No Respiratory Distress, Lungs Clear, Normal Breath Sounds, No Accessory Muscle Use, Chest Non-Tender Cardiovascular: Normal Peripheral Pulses, Regular Rate, Rhythm, No Edema, No Gallop, No JVD, No Murmur, No Rub Peripheral Pulses: 2+: Radial (L), Radial (R) GI/Abdominal: Soft, Non-Tender Skin Exam: Other (quarter sized circular lesion to R lateral upper arm with surrounding erythema. Center of lesion blistering with purulent discharge. ) Course - Vital Signs Last Recorded V/S: Last Vital Signs Temp 97.1 F 03/01/21 13:53 Pulse 95 03/01/21 13:53 Resp 18 03/01/21 13:53 BP 122/94 H 03/01/21 13:53 Pulse Ox 96 03/01/21 13:53 Departure - Departure Time of Disposition: 14:22 Disposition: Home, Self-Care 01 Condition: Good Clinical Impression: Skin infection - Discharge Information *PRESCRIPTION DRUG MONITORING PROGRAM REVIEWED*: Not Applicable *COPY OF PRESCRIPTION DRUG MONITORING REPORT IN PATIENT WILLIAM: Not Applicable Additional Instructions: RX: Doxycycline Keep wound clean, covered and dry. Follow up with your [facility] care facility next week if your symptoms do not improve. Sepsis Event Note (ED) - Evaluation Sepsis Screening Result: No Definite Risk - Focused Exam Vital Signs: Vital Signs Temp Pulse Resp BP Pulse Ox 03/01/21 13:53 97.1 F 95 18 122/94 H 96
== END 2021-03-01 14:32 | disposition home or self-care (01) ==
LOC: DL.ED 12:48
DX: L08.9 Local infection of the skin and subcutaneous tissue, unspecified (principal); I10 Essential (primary) hypertension; K21.9 Gastro-esophageal reflux disease without esophagitis; Z86.73 Personal history of transient ischemic attack (TIA), and cerebral infarction without residual deficits; Z72.0 Tobacco use; Z88.5 Allergy status to narcotic agent; Z79.899 Other long term (current) drug therapy
CPT/HCPCS: 99283